=== PATIENT | female | born 1975 | race Caucasian/White ===

== ENCOUNTER 2018-01-14 17:02 | Emergency (ER) | payer BC ==
[2018-01-14 17:43] VITALS: BP 152/84
--- NOTE | 2018-01-14 17:50 | UC ---
Dental HPI - HPI Summary HPI Summary: Pt presents with dental pain to top right area of her gums for the last 2 days. She knows she has cavities and needs a root canal in at least one tooth in this area. She does have a local dentist, but could not get in to see them until next week. Denies fever, chills, headache, dizziness. - History of Current Complaint Chief Complaint: UCDentalProblem Stated Complaint: DENTAL Time Seen by Provider: 01/14/18 17:50 Hx Obtained From: Patient Hx Last Menstrual Period: 10/17/14 Onset/Duration: Sudden Onset Severity: Severe Pain Intensity: 10 Pain Scale Used: 0-10 Numeric - Allergies/Home Medications Allergies/Adverse Reactions: Allergies Allergy/AdvReac Type Severity Reaction Status Date / Time Sulfa (Sulfonamide Allergy Hives Verified 01/14/18 17:44 Antibiotics) Home Medications: Home Medications Insulin Aspart [Novolog Penfill] 100 unit SC 01/14/18 [History] Insulin Glargine,Hum.rec.anlog [Lantus] 20 unit SC DAILY 01/14/18 [History Confirmed 01/14/18] PMH/Surg Hx/FS Hx/Imm Hx Previously Healthy: Yes Endocrine History: Diabetes - Surgical History Surgical History: Yes Surgery Procedure, Year, and Place: ear surgeries - Family History Known Family History: Positive: None - Social History Occupation: Employed Full-time Lives: With Family Alcohol Use: Occasionally Substance Use Type: None Smoking Status (MU): Light Every Day Tobacco Smoker Type: Cigarettes Amount Used/How Often: 1/2 PK DAILY Review of Systems Constitutional: Negative Skin: Negative Eyes: Negative ENT: Dental Pain Respiratory: Negative Cardiovascular: Negative Neurovascular: Negative Neurological: Negative Psychological: Negative All Other Systems Reviewed And Are Negative: Yes Physical Exam Triage Information Reviewed: Yes Appearance: Well-Appearing, No Pain Distress, Well-Nourished Vital Signs: Initial Vital Signs Temp 98.7 F 01/14/18 17:34 Pulse 92 01/14/18 17:34 Resp 18 01/14/18 17:34 BP 152/84 01/14/18 17:34 Pulse Ox 95 01/14/18 17:34 Vital Signs Reviewed: Yes Eyes: Positive: Conjunctiva Clear. Negative: Conjunctiva Inflamed, Discharge ENT: Positive: Pharynx normal, TMs normal, Dental tenderness - Tooth 11 and 12, Uvula midline. Negative: Pharyngeal erythema, TM bulging, TM dull, TM red, Tonsillar swelling, Tonsillar exudate Dental: Positive: Percussion Tenderness @ - Tooth 11 and 12, Gross Decay/Caries @ - Throughout, Abscess @ - Tooth 11 and 12, Cellulitis @ - Tooth 11 and 12. Negative: Dental Fracture @, Cervical Lymphadenopathy, Bleeding Neck: Positive: Supple, Nontender, No Lymphadenopathy Respiratory: Positive: Lungs clear, Normal breath sounds, No respiratory distress, No accessory muscle use Cardiovascular: Positive: RRR, No Murmur, Pulses Normal Neurological: Positive: Alert Psychological: Positive: Age Appropriate Behavior Skin: Negative: rashes, significant lesion(s) Dental Complaint Course/Dx - Course Course Of Treatment: Dental abscess Tooth 11 and 12 - Clindamycin. Please schedule a follow up appointment with your dentist as soon as possible - Differential Dx/Diagnosis Provider Diagnoses: Tooth 11 and 12 dental abscess Discharge - Sign-Out/Discharge Documenting (check all that apply): Discharge - Discharge Plan Condition: Stable Disposition: HOME Prescriptions: Clindamycin Cap(NF) [Clindamycin Cap 300 mg Cap(NF)] 300 mg PO TID #21 cap Patient Education Materials: Dental Abscess (ED) Referrals: DELORIS Sánchez [Primary Care Provider] - Additional Instructions: If you develop a fever, shortness of breath, chest pain, new or worsening symptoms - please call your PCP or go to the ED. Your blood pressure was high at todays visit. Please see your primary provider within 4 weeks for recheck and re-evaluation. - Billing Disposition and Condition Condition: STABLE Disposition: HOME
== END 2018-01-14 18:03 | disposition home or self-care (01) ==
LOC: UCCORT 17:02
DX: K04.7 Periapical abscess without sinus (principal); F17.210 Nicotine dependence, cigarettes, uncomplicated; E11.8 Type 2 diabetes mellitus with unspecified complications; Z79.4 Long term (current) use of insulin; Z88.2 Allergy status to sulfonamides
CPT/HCPCS: 99212; G0463

== ENCOUNTER 2019-02-06 08:54 | Emergency (ER) | payer BC ==
[2019-02-06 09:30] VITALS: BP 126/75
--- NOTE | 2019-02-06 10:06 | UC ---
Minor Trauma HPI - HPI Summary HPI Summary: Patient states Wednesday morning she slipped on her kitchen floor. Patient states she started to fall and then landed on the dog. Patient sustained bruising to her right knee and left foot. 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 Patient with ongoing pain and swelling. Patient with some bruising. No open wounds or bleeding. Tdap UTD Patient's been taking Motrin and Tylenol with short-term relief. Patient has been icing. Patient denies any other injuries. Did not strike her head. Patient with right neck soreness but states from how she slept last night. Did not have any pain after injury. Patient without any nausea vomiting. No abdominal pain no chest pain or shortness of breath. No paresthesias. Not Medications reviewed this visit - History of Current Complaint Chief Complaint: UCLowerExtremity Stated Complaint: S/P FALL LEFT FOOT/RIGHT KNEE INJURY Time Seen by Provider: 02/06/19 09:26 Hx Obtained From: Patient Hx Last Menstrual Period: 01/10/19 ?: No Onset/Duration: Sudden Onset Onset Of Pain: Post Accident Severity Initially: Moderate Severity Currently: Moderate Pain Intensity: 8 - Allergies/Home Medications Allergies/Adverse Reactions: Allergies Allergy/AdvReac Type Severity Reaction Status Date / Time Sulfa (Sulfonamide Allergy Hives Verified 02/06/19 09:17 Antibiotics) Home Medications: Home Medications Benazepril HCl 10 mg PO DAILY 02/06/19 [History Confirmed 02/06/19] Bp Name ? 02/06/19 [History] PMH/Surg Hx/FS Hx/Imm Hx Previously Healthy: Yes - Surgical History Surgical History: Yes Surgery Procedure, Year, and Place: ear surgeries. LEFT KNEE AND ANKLE SURGERY. - Family History Known Family History: Positive: Non-Contributory - Social History Occupation: Employed Full-time Lives: With Family Alcohol Use: Occasionally Substance Use Type: None Smoking Status (MU): Light Every Day Tobacco Smoker Type: Cigarettes Amount Used/How Often: 1/2 PK DAILY Review of Systems All Other Systems Reviewed And Are Negative: Yes Skin: Positive: Bruising Musculoskeletal: Positive: Other: - right knee, left ankle Physical Exam - Summary Physical Exam Summary: Vital Signs Reviewed: Yes A+Ox3, no distress Eyes: Conjunctiva Clear, KELLY. EOM intact and full ENT: Hearing grossly normal TM x 2 clear, mmoist, uvula midline, no exudate, no erythema Neck: Positive: Supple Respiratory: Positive: No respiratory distress, No accessory muscle use + CTA throughout no w/r Cardiovascular: RRR nl s1, s2 no m/r CBT <2 sec abd soft + BS nt/nd no guarding, no distension Musculoskeletal Exam: + SLE + flex.ext right knee with mild pain lateral joint no tib/fib, no pain ankle, + great toe extension mild ecchymosis and superficial skin abraison lateral knee LLE: + flex/ext knee without difficulty + flex/ext ankle + TTP left lateral ankle extending to dorsum laterl foot TTP lateral malleolus No crepitus, no open wound, mild pain base 5th metatarsal Neurological: Positive: Alert, + sensation throughout Psychological: Positive: Normal Response To Family Skin: Positive: no rash, + ecchymosis right knee and left foot. small abrasion right knee no lacerations Triage Information Reviewed: Yes Vital Signs: Initial Vital Signs Temp 98.1 F 02/06/19 09:22 Pulse 84 02/06/19 09:22 Resp 16 02/06/19 09:22 BP 126/75 02/06/19 09:22 Pulse Ox 98 02/06/19 09:22 Diagnostics - Radiology No standard instances Radiology Interpretation Completed By: Radiologist - Patient Name: ADRIANA ANTOINE Medical Record#: [id number] Ordering Physician: Christiana Power MD Acct.#: [id number] : 1975 Age: 43 Sex: F Location: [facility] Exam Date: 02/06/19938 ADM Status: REG ER Order Information: ANKLE LEFT 3+S Accession Number: [id number] CPT : 68796 Indication: Lateral aspect RIGHT foot and ankle pain post fall. Comparison: No relevant prior exams available on the [facility] PACS for comparison. Technique: AP, mortise, and lateral views LEFT ankle. AP, lateral, and oblique views LEFT foot. Report : Negative for fracture or articular malalignment at the LEFT ankle or foot. Mild osteophytosis and slight joint space narrowing at the first metatarsal phalangeal joint. The joint spaces are otherwise preserved throughout. Mild soft tissue swelling over the lateral malleolus at the ankle. IMPRESSION: #. Mild soft tissue swelling over the lateral malleolus of the ankle. No evidence for fracture at the ankle or foot. <Electronically signed by Stephan Do MD in OV> 1021 Dictated By: Stephan Do MD Dictated Date/Time: 02/06/19 1021 Transcribed Date/Time: 02/06/19 1018 Copy to: CC:Jazmine Brower MD; Christiana Power MD Imaging - [facility] Imaging - [facility] [address] [address] ph [phone]) ph [phone]) ph ([phone]) This report is only to be considered final once signed by the Provider(s) as displayed in the "<Electronically Signed by >" field (s). Absence of a signature indicates the report is in a draft status and still needs to be finalized. In the event this document was created by someone other than the signing Provider, the individual initiating the document will be listed in the "Entered by:" or "Dictated by:" felton. 1 of 1 Re-Evaluation - Re-Evaluation First Eval Comment: reviewed images with pt. will place mayra wrap, air splint left crutch. motrin/apap. ice. elevate. work note. f/u with PCP, sports med, ortho. pt comfortable and in agreement [facility] plan Minor Trauma Course/Dx - Course Course Of Treatment: Patient with mechanical fall on Wednesday after she slipped on some Zantac for the phone her dog. Patient sustained ecchymosis to her right knee as well as left foot. Patient walking with a limp. 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 Patient's been taking Motrin Tylenol applying ice. Patient's medications reviewed this visit. Vital signs are stable. On exam patient with tenderness the lateral aspect of her right patella. Patient also with ecchymosis and pain in the lateral aspect of her left malleolus. We will image. Patient denies any analgesia now. Ice. Elevate. Reassess. - Differential Dx/Diagnosis Provider Diagnosis: Abrasion hip/leg, Knee contusion, Ankle sprain Discharge - Sign-Out/Discharge Documenting (check all that apply): Patient Departure All imaging exams completed and their final reports reviewed: Yes - Discharge Plan Condition: Stable Disposition: HOME Patient Education Materials: Ankle Sprain (DC), Crutch Instructions (ED), Knee Pain (ED) Forms: *Work Release Referrals: Jazmine Brower MD [Primary Care Provider] - Additional Instructions: -wear mayra wrap for comfort and support -apply ice (20 min at a time) every 2-3 hours for the next 2 days -use crutches until you can walk normally without a limp -Elevate your leg - this will help with swelling and pain - Alternate ibuprofen (advil, Motrin) 600mg and tylenol every 3 hours for pain. Take with food. Do NOT take for more than 4-5 days -Contact the orthopedic provider or the sports medicine provider to schedule a follow-up appointment this week. - Billing Disposition and Condition Condition: STABLE Disposition: Home
== END 2019-02-06 10:57 | disposition home or self-care (01) ==
LOC: UCCORT 08:54
DX: S80.01XA Contusion of right knee, initial encounter (principal); S90.32XA Contusion of left foot, initial encounter; S80.211A Abrasion, right knee, initial encounter; F17.210 Nicotine dependence, cigarettes, uncomplicated; Z88.2 Allergy status to sulfonamides; S93.409A Sprain of unspecified ligament of unspecified ankle, initial encounter; W19.XXXA Unspecified fall, initial encounter; Y92.9 Unspecified place or not applicable
CPT/HCPCS: 99203; G0463